=== PATIENT | female | born 1995 | race African-American/Black ===

== ENCOUNTER 2018-11-04 12:26 | Emergency (ER) | payer BC, OTHER ==
[2018-11-04] MEDS ORDERED: Ibuprofen 600 MG TAB ONE (13:03)
== END 2018-11-04 13:02 | disposition home or self-care (01) ==
LOC: SCSER 12:26
DX: L03.221 Cellulitis of neck (principal); F42.9 Obsessive-compulsive disorder, unspecified; J45.909 Unspecified asthma, uncomplicated; G43.909 Migraine, unspecified, not intractable, without status migrainosus; E55.9 Vitamin D deficiency, unspecified
CPT/HCPCS: 99283